=== PATIENT | male | born 2005 ===

== ENCOUNTER 2024-11-04 22:22 | Emergency (ER) | payer MEDICAID ==
[~2024-11-04] VITALS: Ht 167.6 cm; Wt 90.7 kg
[2024-11-04] MEDS ORDERED: Ketorolac Tromethamine 15mg Vial IM ONE (22:45)
[2024-11-04] MEDS ORDERED: IBUP100S PO (22:48)
[2024-11-04] MEDS ORDERED: ACETAMINOP160 MG/51 PO (22:48)
[2024-11-07] MEDS ORDERED: Veetids 500500 MG PO (09:42)
== END 2024-11-04 23:11 | disposition home or self-care (01) ==
LOC: ER 22:22
DX: J02.9 Acute pharyngitis, unspecified (principal)
CPT/HCPCS: 87077; 87081; 87147; 87185; 87430; 96372; 99283-25; J1885